=== PATIENT | male | born 1950 | race Caucasian/White ===

== ENCOUNTER 2019-05-21 12:35 | Outpatient (CLI) | payer MEDICARE, BC, SELFPAY ==
[2019-05-23 02:43] LABS: Testosterone, Total 16 ng/dL (240-950)
== END 2019-05-21 12:55 ==
PROVIDERS: PCP Family Medicine Adult Medicine; Visit Provider Radiology Radiation Oncology
DX: C61 Malignant neoplasm of prostate (principal)
CPT/HCPCS: 36415; 84153; 84403